=== PATIENT | male | born 1990 | race Caucasian/White ===

== ENCOUNTER 2017-07-12 11:36 | Emergency (ER) | payer OTHER ==
[~2017-07-12 11:36] MED LIST: HYDR-3250 PO; IBU200 PO
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
[2017-07-12] MEDS ORDERED: ONDANSETRON 4 MG/2 ML VIAL IVP ONE (12:05)
--- NOTE | 2017-07-12 12:10 | EKG ---
FACILITY: [facility] [place] PATIENT NAME: CHRISTIAN ARMSTRONG : [id number] MR: [id number] V: [id number] EXAM DATE: ORDERING PHYSICIAN: ALEX LOZANO TECHNOLOGIST: SUNIL Rehman Reason : DIZZY Blood Pressure : / mmHG Vent. Rate : 058 BPM Atrial Rate : 058 BPM P-R Int : 148 ms QRS Dur : 108 ms QT Int : 414 ms P-R-T Axes : 033 076 047 degrees QTc Int : 406 ms Sinus bradycardia with premature atrial complexes Otherwise normal ECG No previous ECGs available Confirmed by YARELIS STEVE ([id number]) on 07/12/2017 1:16:56 PM Referred By: MARTY Confirmed By:YARELIS STEVE
--- NOTE | 2017-07-12 12:50 | RADIOLOGY IMAGING REPORT ---
FACILITY: [facility] PATIENT NAME: Fransisco Torres : 1990 MR: [id number] V: [id number] EXAM DATE: ORDERING PHYSICIAN: ALEX LOZANO TECHNOLOGIST: Location: [facility] Patient: Fransisco Torres : 1990 Visit/Account:[id number] Date of Sevice: 07/12/2017 EXAMINATION: Head CT without intravenous contrast History: Fall, headache TECHNIQUE: Contiguous axial images were obtained from the skull base to the vertex without intraven ous contrast. One of the following dose optimization techniques was utilized in the performance of th is exam: Automated exposure control; adjustment of the mA and/or kV according to the patient's size; or use of an iterative reconstruction technique. Specific details can be referenced in the facility 's radiology CT exam operational policy. COMPARISON STUDIES: 11/30/2011 FINDINGS: Visualized mastoid air cells / paranasal sinuses: negative Calvarium and scalp: negative White matter: negative Dural venous sinuses / arterial structures: negative Ventricles / sulci / fissures: negative Masses / hemorrhage / midline shift: negative Extra-axial spaces: negative IMPRESSION: Normal head CT. No evidence of a mass, acute ischemia or hemorrhage. Report Dictated By: Fransico Sharma MD at 07/12/2017 12:45 PM Report E-Signed By: Fransico Sharma MD at 07/12/2017 12:47 PM WSN:[id number]
--- NOTE | 2017-07-12 12:55 | RADIOLOGY IMAGING REPORT ---
FACILITY: [facility] [place] PATIENT NAME: Fransisco Torres : 1990 MR: [id number] V: [id number] EXAM DATE: ORDERING PHYSICIAN: ALEX LOZANO TECHNOLOGIST: Location: [facility] Patient: Fransisco Torres : 1990 Visit/Account:[id number] Date of Sevice: 07/12/2017 EXAMINATION: Cervical spine CT History: Fall COMPARISON STUDIES: 11/30/2011 TECHNIQUE: Axial images were obtained through the cervical spine without IV contrast administration. Coronal and sagittal reformatted images were obtained from the axial source data. One of the followi ng dose optimization techniques was utilized in the performance of this exam: Automated exposure cont rol; adjustment of the mA and/or kV according to the patient's size; or use of an iterative reconstr uction technique. Specific details can be referenced in the facility's radiology CT exam operational policy. FINDINGS: No evidence of fracture. Vertebral bodies are normal in height and alignment. Disc spaces within no rmal limits. No bony central canal or foraminal stenosis. Craniocervical junction intact. Atlantoa xial interval within normal limits. Paraspinal soft tissues and lung apices negative. IMPRESSION: Negative CT of the cervical spine Report Dictated By: Fransico Sharma MD at 07/12/2017 12:47 PM Report E-Signed By: Fransico Sharma MD at 07/12/2017 12:52 PM WSN:[id number]
[2017-07-12 13:00] VITALS: BP 117/76
[2017-07-12] MEDS ORDERED: ACETAMINOPHEN 500 MG TAB PO ONE (13:05)
[2017-07-12] MEDS ORDERED: META800T18 PO (13:31)
[2017-07-12] MEDS ORDERED: METAXALONE 800 MG TAB PO SCH (14:00)
== END 2017-07-12 13:47 | disposition home or self-care (01) ==
LOC: ER 11:50
DX: S16.1XXA Strain of muscle, fascia and tendon at neck level, initial encounter (principal); W17.89XA Other fall from one level to another, initial encounter; R00.1 Bradycardia, unspecified
CPT/HCPCS: 70450; 72125; 93005; 96374; 99284; J2405; L0172